=== PATIENT | female | born 2000 | race Two or more races ===

== ENCOUNTER → 2024-11-07 | Emergency (ER) | payer MEDICAID ==
[~2024-11-07] VITALS: Ht 162.6 cm; Wt 117.9 kg
[~2024-11-07] MED LIST: CEPH-570 PO
[2024-11-07 14:10] VITALS: BP 157/89; TEMP 97.8
[2024-11-07 14:32] VITALS: O2SAT 97
== END | disposition home or self-care (01) ==
LOC: ER 15:44
DX: S30.861A Insect bite (nonvenomous) of abdominal wall, initial encounter (principal); L03.116 Cellulitis of left lower limb; Z90.721 Acquired absence of ovaries, unilateral; W57.XXXA Bitten or stung by nonvenomous insect and other nonvenomous arthropods, initial encounter; Y93.89 Activity, other specified; Y92.89 Other specified places as the place of occurrence of the external cause; Y99.8 Other external cause status